=== PATIENT | female | born 1980 | race Caucasian/White ===

== ENCOUNTER → 2016-12-29 | Outpatient (CLI) | payer OTHER ==
[~2016-12-29] MED LIST: IBUP-1222 PO; OXYC-302 PO; PREN1TAB27 PO; URSO300C27 PO
== END | disposition home or self-care (01) ==
LOC: CFH 09:35
PROVIDERS: ATTEND Obstetrics & Gynecology
DX: O36.4XX0 Maternal care for intrauterine death, not applicable or unspecified (principal); Z3A.00 Weeks of gestation of pregnancy not specified
CPT/HCPCS: 72170; 74000

== ENCOUNTER → 2017-01-01 | Outpatient (CLI) | payer OTHER ==
[~2017-01-01] MED LIST changes: +ETAN50DI SC; +MULT-658 PO
== END | disposition home or self-care (01) ==
LOC: STAR 15:39
PROVIDERS: ATTEND Obstetrics & Gynecology
DX: Z31.84 Encounter for fertility preservation procedure (principal)
CPT/HCPCS: 36415; 84703; 85025

== ENCOUNTER 2017-01-06 06:05 | Day surgery (SDC) | payer OTHER ==
[~2017-01-06] VITALS: Ht 175.3 cm; Wt 82.0 kg
[2017-01-06] MEDS ORDERED: LACTATED RINGERS 1,000 ML IV SCH (06:44)
[2017-01-06 06:47] VITALS: BP 120/83
[2017-01-06] MEDS ORDERED: FENTANYL PF 250 MCG/5ML ONE (06:56)
[2017-01-06] MEDS ORDERED: MIDAZOLAM 1 MG/ML, 2ML ONE (06:57)
[2017-01-06] MEDS ORDERED: SILVER NITRATE STICK TP ONE (07:09)
[2017-01-06] MEDS ORDERED: BUPIVACAINE/PF-EPI 0.25% 1:200K ONE (07:09)
[2017-01-06] MEDS ORDERED: SUCCINYLCHOLINE 20 MG/ML, 10ML ONE (07:40)
[2017-01-06] MEDS ORDERED: CEFAZOLIN 1,000 MG ONE (07:40)
[2017-01-06] MEDS ORDERED: PROPOFOL 10 MG/ML, 20ML ONE (07:40)
[2017-01-06] MEDS ORDERED: DEXAMETHASONE 4 MG/ML, 1ML ONE (07:40)
[2017-01-06] MEDS ORDERED: KETOROLAC 30 MG/1 ML ONE ×2 (07:40→09:09)
[2017-01-06] MEDS ORDERED: ONDANSETRON 2MG/ML, 2ML ONE (07:40)
[2017-01-06 07:49] LABS: HCG UR OBC PASS
[2017-01-06] MEDS ORDERED: ONDANSETRON 2MG/ML, 2ML IVPush PRN (08:30)
[2017-01-06] MEDS ORDERED: ACETAMINOPHEN 325 MG TABLET PO PRN (08:30)
[2017-01-06] MEDS ORDERED: HYDROmorphone 1 MG/ML, 1ML IV PRN (08:30)
[2017-01-06] MEDS ORDERED: MEPERIDINE/PF 25MG/0.5ML IVPush PRN (08:30)
[2017-01-06] MEDS ORDERED: MIDAZOLAM 1 MG/ML, 2ML IV PRN (08:30)
[2017-01-06] MEDS ORDERED: FENTANYL PF 100 MCG/2ML IV PRN (08:30)
[2017-01-06] MEDS ORDERED: OXYcodone 5 MG/5 ML ORAL.SOL UDC PO PRN (08:30)
[2017-01-06] MEDS ORDERED: ACETAMINOPHEN 325 MG TABLET ONE (09:00)
[2017-01-06] MEDS ORDERED: FENTANYL PF 100 MCG/2ML ONE (09:00)
[2017-01-06] MEDS ORDERED: OXYcodone 5 MG/5 ML ORAL.SOL UDC ONE (09:01)
[2017-01-06] MEDS ORDERED: KETOROLAC 30 MG/1 ML IVPush ONE (09:30)
== END 2017-01-06 11:15 | disposition home or self-care (01) ==
LOC: OUT 06:05
PROVIDERS: ATTEND Obstetrics & Gynecology
DX: Z30.2 Encounter for sterilization (principal); T83.32XA Displacement of intrauterine contraceptive device, initial encounter; Z88.0 Allergy status to penicillin; Z87.442 Personal history of urinary calculi; M06.9 Rheumatoid arthritis, unspecified; F32.9 Major depressive disorder, single episode, unspecified; Z88.9 Allergy status to unspecified drugs, medicaments and biological substances; Y83.8 Other surgical procedures as the cause of abnormal reaction of the patient, or of later complication, without mention of misadventure at the time of the procedure; Z79.899 Other long term (current) drug therapy
CPT/HCPCS: 36415; 58301; 58661; 74000; 81025; 86850; 86900; 87086; 88302; J0330; J0690; J1100; J1885; J2250; J2405; J2704; J3010; J7120

== ENCOUNTER 2017-04-28 19:50 | Emergency (ER) | payer OTHER ==
[~2017-04-28] VITALS: Ht 175.3 cm; Wt 84.9 kg
[~2017-04-28 19:50] MED LIST changes: -ETAN50DI SC; +ETAN50DI2 SC
[2017-04-28 23:09] VITALS: BP 103/56
== END 2017-04-29 00:32 | disposition home or self-care (01) ==
LOC: ED 23:45
DX: J01.00 Acute maxillary sinusitis, unspecified (principal); J02.9 Acute pharyngitis, unspecified; M06.9 Rheumatoid arthritis, unspecified
CPT/HCPCS: 71020; 87081; 87880; 99285

== ENCOUNTER 2020-01-23 13:29 | Emergency (ER) | payer OTHER ==
[~2020-01-23] VITALS: Ht 175.3 cm; Wt 86.9 kg
[2020-01-23] MEDS ORDERED: MORPHINE SULFATE 4 MG/ML, 1ML ONE ×2 (13:55→16:03)
[2020-01-23] MEDS ORDERED: ONDANSETRON 2MG/ML, 2ML ONE (13:55)
[2020-01-23] MEDS: MORPHINE SULFATE 4 MG/ML, 1ML IVPush PRN ×2 (14:10→16:10)
[2020-01-23 14:16] LABS: BASOPHILS # (AUTO) 0.05 x10^3/uL (0-0.1); BASOPHILS % (AUTO) 0 % (0-1); EOSINOPHILS # (AUTO) 0.25 x10^3/uL (0-0.4); EOSINOPHILS % (AUTO) 2 % (1-7); LYMPHOCYTES # (AUTO) 3.04 x10^3/uL (1-3.4); LYMPHOCYTES % (AUTO) 24 % (22-44); MD NO; MEAN CORPUSCULAR HGB CONC 33.4 g/dL (32.4-35.8); MEAN CORPUSCULAR VOLUME 89.8 fL (80-100); MEAN PLATELET VOLUME 9.2 fL (7.4-10.4); MONOCYTES # (AUTO) 0.64 x10^3/uL (0.2-0.8); MONOCYTES % (AUTO) 5 % (2-9); NEUTROPHILS % (AUTO) 69 % (42-75); PLATELET COUNT 249 x10^3/uL (130-400); RED BLOOD COUNT 4.64 x10^6/uL (3.82-5.3); RED CELL DISTRIBUTION WIDTH 14.6 % (9.6-15.2)
--- NOTE | 2020-01-23 14:21 | NUR ---
THIS IS A 39 YO FEMALE WHO PRESENTS TO THE ER C/O INTERMITTENT RLQ PAIN WITH NAUSEA X 1 WEEK. PAIN WORSE TODAY. PT HAD ONE EPISODE OF VOMITING. PT AO X 4. SKIN PWD. RESP EVEN AND UNLABORED. URINE SAMPLE OBTAINED AND SENT TO LAB. IV ACCESS ESTABLISHED AND PT MEDICATED ORDERED FOR PAIN/NAUSEA. PT AWARE WE ARE WAITING FOR LAB/IMAGING RESULTS. PT ON CONT BP AND SPO2 MONITORS. CALL LIGHT WITHIN REACH.
[2020-01-23 14:29] LABS: ALBUMIN 3.9 g/dL (3.4-5.0); ANION GAP 6 mmol/L (5-15); CHLORIDE 109 mmol/L (98-107); MICROSCOPIC INDICATED
[2020-01-23 14:35] LABS: ALANINE AMINOTRANSFERASE 22 U/L (12-78); ALKALINE PHOSPHATASE 94 U/L (45-117); BILIRUBIN,TOTAL 0.8 mg/dL (0.2-1.0); CREATININE 0.83 mg/dL (0.55-1.02); TOTAL PROTEIN 7.7 g/dL (6.4-8.2)
[2020-01-23] MEDS ORDERED: SODIUM CHLORIDE FLUSH 10ML SYR IVF ONE (15:00)
[2020-01-23] MEDS ORDERED: ONDANSETRON 2MG/ML, 2ML IVPush ONE (15:00)
--- NOTE | 2020-01-23 15:20 | NUR ---
PT CURRENTLY RESTING ON [employer], CHATTING ON CELL PHONE. NO ACUTE DISTRESS NOTED. PT AO X 4. SKIN PWD. RESP EVEN AND UNLABORED. PT AWARE WE ARE WAITING FOR LAB/IMAGING RESULTS. PT ON CONT BP AND O2 MONITORS. PT DENIES NEEDS AT THIS TIME. CALL LIGHT WITHIN REACH. WILL CONT TO MONITOR PT.
--- NOTE | 2020-01-23 15:39 | NUR ---
PT CURRENTLY IN IMAGING.
--- NOTE | 2020-01-23 16:09 | NUR ---
PT C/O CONT 01/06 PAIN. PT REMEDICATED FOR PAIN ORDERED. JB CARSON AT BEDSIDE FOR RECHECK/EXPANATION OF RESULTS. PT AWARE WE ARE STILL WAITING FOR US RESULTS. PT ON CONT BP AND SPO2 MONITORS. CALL LIGHT WITHIN REACH. REPORT TO MIGUELITO ROMAN WHO ASSUMED CARE OF PT.
[2020-01-23 16:22] VITALS: BP 104/52
--- NOTE | 2020-01-23 16:23 | NUR ---
REPORT FROM MIGUELITO HERNANDES. PT RECLINED IN BED WATCHING TELEVISION. NAD NOTED AT THIS TIME. RESPIRATIONS EVEN AND UNLABORED ON RA, SATURATING WELL. PT REPORTS DECREASE IN PAIN FOLLOWING MORPHINE ADMIN, NOW RATES 3/10. PLAN FOR PT TO DC. AWAITING ERMD DC INFORMATION AND CHART. SIDE RAILS UP, CALL LIGHT IN REACH.
--- NOTE | 2020-01-23 17:17 | NUR ---
Task RN: Discharge instructions given. All questions and concerns addressed. Patient ambulatory with a steady gait. Belongings with patient.
== END 2020-01-23 17:19 | disposition home or self-care (01) ==
LOC: ED 14:05
DX: N20.0 Calculus of kidney (principal); R10.31 Right lower quadrant pain; M06.9 Rheumatoid arthritis, unspecified; Z87.891 Personal history of nicotine dependence
CPT/HCPCS: 36415; 74177; 76830; 80053; 81001; 83690; 84703; 85025; 96374; 96375; 96376; 99285; J2270; J2405